=== PATIENT | male | born 1980 | race Caucasian/White ===

== ENCOUNTER 2020-02-20 06:11 | Day surgery (SDC) | payer OTHER, SELFPAY ==
[~2020-02-20] VITALS: Ht 190.5 cm; Wt 99.8 kg
[2020-02-20] MEDS ORDERED: CEFAZOLIN SOD 1 GM in D5W 50 ML IV ONE (07:00)
[2020-02-20] MEDS ORDERED: WATER FOR IRRIGATION,STERILE 1,000 ML IRRIG.SOLN IR ONE (07:26)
[2020-02-20] MEDS ORDERED: SUGAMMADEX SODIUM 200 MG/2 ML VIAL IV ONE (07:26)
[2020-02-20] MEDS ORDERED: ROCURONIUM BROMIDE 10 MG/ML (ZEMURON) IV ONE (07:26)
[2020-02-20] MEDS ORDERED: ISOFLURANE 15 MIN GAS INH ONE (07:26)
[2020-02-20] MEDS ORDERED: DEXAMETHASONE SOD PHOSPHATE 4 MG/ML VIAL IVP ONE (07:26)
[2020-02-20] MEDS ORDERED: MIDAZOLAM HCL 5 MG/5 ML VIAL IVP ONE (07:26)
[2020-02-20] MEDS ORDERED: KETOROLAC TROMETHAMINE 30 MG VIAL IVP ONE (07:26)
[2020-02-20] MEDS ORDERED: PROPOFOL 200MG/ 20ML VIAL (DIPRIVAN) IV ONE (07:26)
[2020-02-20] MEDS ORDERED: fentaNYL CITRATE 250 MCG/5 ML AMP IV ONE (07:26)
[2020-02-20] MEDS ORDERED: NS 1000 ML IV.SOLN IV ONE (07:26)
[2020-02-20] MEDS ORDERED: NS IRRIG SOLN 1000 ML IR ONE (07:26)
[2020-02-20] MEDS ORDERED: ONDANSETRON HCL 4 MG/2 ML VIAL IVP ONE (07:26)
[2020-02-20] MEDS ORDERED: LR 1,000 ML IV.SOLN IV ONE (07:26)
[2020-02-20] MEDS ORDERED: BUPIVACAINE /PF 0.25% 30 ML VIAL INJ ONE (07:26)
[2020-02-20] MEDS ORDERED: LIDOCAINE 2%, 20 ML MDV INJ ONE (07:26)
[2020-02-20] MEDS ORDERED: METOCLOPRAMIDE HCL 10 MG/2 ML VIAL IVP PRN (08:15)
[2020-02-20] MEDS ORDERED: MIDAZOLAM HCL 2 MG/2 ML VIAL (VERSED) IVP PRN (08:15)
[2020-02-20] MEDS ORDERED: MEPERIDINE HCL/PF 25 MG/ML DISP.SYRIN IVP PRN (08:15)
[2020-02-20] MEDS ORDERED: LR 1,000 ML IV SCH (08:15)
[2020-02-20] MEDS ORDERED: hydrALAZINE HCL 20 MG/ML VIAL IVP PRN (08:15)
[2020-02-20] MEDS ORDERED: ONDANSETRON HCL 4 MG/2 ML VIAL IVP PRN (08:15)
[2020-02-20] MEDS ORDERED: HYDROmorphone 1 MG INJ. 1 MG/ML AMPUL IVP PRN ×3 (08:15→09:15)
[2020-02-20] MEDS ORDERED: D5/0.45 NS 1,000 ML IV SCH (09:07)
[2020-02-20] MEDS ORDERED: HYDROcodone/ACETAMIN 5-325 MG TAB (NORCO/ VICODIN) PO PRN ×2 (09:15)
[2020-02-20] MEDS ORDERED: HYDROmorphone 1 MG INJ. 1 MG/ML AMPUL ONE (09:33)
[2020-02-20 10:50] VITALS: BP_SYST 128
== END 2020-02-20 11:20 | disposition home or self-care (01) ==
LOC: SDS 06:11 → SMU 06:12 → SDS 11:20
PROVIDERS: ATTEND Colon & Rectal Surgery
DX: K81.1 Chronic cholecystitis (principal); F41.9 Anxiety disorder, unspecified; E11.9 Type 2 diabetes mellitus without complications; Z79.899 Other long term (current) drug therapy; Z20.828 Contact with and (suspected) exposure to other viral communicable diseases
CPT/HCPCS: 47563; 74300; 82962; 88304; C1727; C1758; J0690; J1170; J7060; Q9967; U0003; C9399; J1100; J1885; J2001; J2250; J2405; J2704; J3010; J3490; J7030; J7120